=== PATIENT | female | born 1980 | race American Indian/Alaskan Native ===

== ENCOUNTER 2019-04-05 10:28 | Outpatient (CLI) | payer OTHER ==
[2019-04-05 10:53] LABS: Hematocrit 25.3 % (30.3-42.9); Hemoglobin 7.6 gm/dl (10.1-14.3)
[2019-04-05] MEDS ORDERED: ALBUTEROL 2.5 MG/3 ML NEBU IH ONE (11:27)
== END 2019-04-05 10:29 | disposition home or self-care (01) ==
LOC: PF 10:28
PROVIDERS: ATTEND Internal Medicine
DX: M19.90 Unspecified osteoarthritis, unspecified site (principal); E11.9 Type 2 diabetes mellitus without complications; J45.909 Unspecified asthma, uncomplicated
CPT/HCPCS: 36415; 85014; 85018; 94060; 94640

== ENCOUNTER 2019-09-12 09:17 | Emergency (ER) | payer BC, OTHER ==
[2019-09-12] MEDS ORDERED: ASPIRIN 325 MG TAB PO ONE (09:45)
[2019-09-12 10:29] LABS: Basophils % (Auto) 0.7 % (0.0-1.8); Eosinophils % (Auto) 0.5 % (0.0-4.3); Hematocrit 24.6 % (30.3-42.9); Hemoglobin 7.2 gm/dl (10.1-14.3); Lymphocytes # (Auto) 2.8 K/mm3 (1.2-5.4); Lymphocytes % (Auto) 41.3 % (13.4-35.0); Mean Corpuscular HGB Conc 29 % (30-34); Monocytes # (Auto) 0.6 K/mm3 (0.0-0.8); Monocytes % (Auto) 8.9 % (0.0-7.3); Platelet Count 552 K/mm3 (140-440); Red Blood Count 4.19 M/mm3 (3.65-5.03); Red Cell Distribution Width 19.3 % (13.2-15.2)
--- NOTE | 2019-09-12 10:40 | XRay Report ---
CHEST 1 VIEW INDICATION: Chest Pain. COMPARISON: None. FINDINGS: Support devices: None. Heart: Within normal limits. Lungs/Pleura: No acute air space or interstitial disease. Additional findings: None. IMPRESSION: No acute abnormality. Signer Name: Prashant Herrera MD Signed: 09/12/2019 10:36 AM Workstation Name: [id number]
[2019-09-12 10:47] LABS: BUN/Creatinine Ratio 14; Blood Urea Nitrogen 10 mg/dL (7-17); Calcium 8.8 mg/dL (8.4-10.2); Hemolysis Index 7
[2019-09-12 10:49] LABS: Mean Corpuscular Volume 59 fl (79-97)
[2019-09-12 11:20] VITALS: BP 148/87
--- NOTE | 2019-09-12 11:31 | Emergency Department Report ---
ED General Adult HPI - General Chief complaint: Chest Pain Stated complaint: CHEST PAIN, STOMACH PAIN Time Seen by Provider: 09/12/19 11:19 Source: patient Mode of arrival: Ambulatory Limitations: No Limitations - History of Present Illness Initial comments: 38-year-old -[place] female presents to the emergency room complaining of chest pain that is intermittent been going on for the last year but the last 2 months it seems of gotten worse. Patient states that his difficulty for sleeping. It is worse when she working or cleaning or moving. He gets better with rest. Patient reports that the pain is 8 out of 10 it feels like pressure but does not feel like her usual heartburn. Patient admits to shortness of breath with minimal movement. Patient admits to nausea but no vomiting. Patient was seen in [facility] in May and had to have a blood transfusion. Patient has a past medical history of anemia and asthma. Patient currently takes no medications. Patient does have a primary care provider but has not followed up. Patient does admit to heavy menses with her last menstrual period 09/09/2019. It usually lasts about 5 days in is to see the first week of the month. Patient denies any rectal bleeding denies any hematuria hematochezia. Patient denies any hemorrhoids. Onset/Timin -: month(s) Location: chest Radiation: non-radiation Quality: other (Heaviness) Consistency: intermittent Improves with: rest Worsens with: eating, movement Associated Symptoms: chest pain, nausea/vomiting (No vomiting), shortness of breath. denies: cough, headaches, loss of appetite Treatments Prior to Arrival: none - Related Data Previous Rx's Medication Instructions Recorded Last Taken Type Ciprofloxacin HCl [Ciprofloxacin 500 mg PO Q12HR #14 tab 03/28/15 Unknown Rx TAB] HYDROcodone/APAP 10-325 [Conrath 1 each PO Q6HR PRN #20 tablet 03/28/15 Unknown Rx 10-325 mg TAB] Acetaminophen/Codeine [Tylenol #3] 1 tab PO Q6H PRN #20 tab 09/20/15 Unknown Rx Ibuprofen [Motrin] 600 mg PO Q8H PRN #40 tablet 09/20/15 Unknown Rx Sulfamethoxazole/Trimethoprim 1 each PO BID #20 tablet 09/20/15 Unknown Rx [Bactrim DS TAB] Docusate Sodium [Colace] 100 mg PO BID PRN #20 capsule 09/12/19 Unknown Rx Ferrous Sulfate [Ferrous Sulfate 324 mg PO TID #90 tablet. 09/12/19 Unknown Rx 324 MG] Allergies Allergy/AdvReac Type Severity Reaction Status Date / Time Penicillins Allergy Seizure Verified 03/28/15 08:23 ED Review of Systems ROS: Stated complaint: CHEST PAIN, STOMACH PAIN Other details as noted in HPI Comment: All other systems reviewed and negative ED Past Medical Hx - Past Medical History Previous Medical History?: Yes Hx Diabetes: Yes (Diet Controlled, no meds) Hx Asthma: Yes Additional medical history: Obesity - Surgical History Past Surgical History?: Yes Additional Surgical History: - Social History Smoking Status: Never Smoker Substance Use Type: None - Medications Home Medications: Home Medications Medication Instructions Recorded Confirmed Last Taken Type Ciprofloxacin HCl [Ciprofloxacin 500 mg PO Q12HR #14 tab 03/28/15 Unknown Rx TAB] HYDROcodone/APAP 10-325 [Conrath 1 each PO Q6HR PRN #20 tablet 03/28/15 Unknown Rx 10-325 mg TAB] Acetaminophen/Codeine [Tylenol #3] 1 tab PO Q6H PRN #20 tab 09/20/15 Unknown Rx Ibuprofen [Motrin] 600 mg PO Q8H PRN #40 tablet 09/20/15 Unknown Rx Sulfamethoxazole/Trimethoprim 1 each PO BID #20 tablet 09/20/15 Unknown Rx [Bactrim DS TAB] Docusate Sodium [Colace] 100 mg PO BID PRN #20 capsule 09/12/19 Unknown Rx Ferrous Sulfate [Ferrous Sulfate 324 mg PO TID #90 tablet. 09/12/19 Unknown Rx 324 MG] ED Physical Exam - General Limitations: No Limitations General appearance: alert, in no apparent distress - Head Head exam: Present: atraumatic, normocephalic - Eye Eye exam: Present: normal appearance - ENT ENT exam: Present: mucous membranes moist - Neck Neck exam: Present: normal inspection - Respiratory Respiratory exam: Present: normal lung sounds bilaterally. Absent: respiratory distress - Cardiovascular Cardiovascular Exam: Present: regular rate, normal rhythm. Absent: systolic murmur, diastolic murmur, rubs, gallop - GI/Abdominal GI/Abdominal exam: Present: soft, normal bowel sounds - Extremities Exam Extremities exam: Present: normal inspection - Back Exam Back exam: Present: normal inspection - Neurological Exam Neurological exam: Present: alert, oriented X3 - Psychiatric Psychiatric exam: Present: normal affect, normal mood - Skin Skin exam: Present: warm, dry, intact, normal color. Absent: rash ED Course Vital Signs 09/12/19 09:46 Temperature 98.0 F Pulse Rate 68 Respiratory 18 Rate Blood Pressure 148/87 O2 Sat by Pulse 100 Oximetry ED Medical Decision Making - Lab Data Result diagrams: 09/12/19 09:52 09/12/19 09:52 - Radiology Data Radiology results: report reviewed Patient: PAULINA BAZZI MR#: [id number] : 1980 Acct:[id number] Age/Sex: 38 / F ADM Date: 09/12/19 Loc: ED Attending Dr: Ordering Physician: MONICA BERNABE MD Date of Service: 09/12/19 Procedure(s): XR chest 1V ap Accession Number(s): [id number] cc: MONICA BERNABE MD Fluoro Time In Minutes: CHEST 1 VIEW INDICATION: Chest Pain. COMPARISON: None. FINDINGS: Support devices: None. Heart: Within normal limits. Lungs/Pleura: No acute air space or interstitial disease. Additional findings: None. IMPRESSION: No acute abnormality. Signer Name: Prashant Herrera MD Signed: 09/12/2019 10:36 AM Workstation Name: [id number] Transcribed By: ES Dictated By: Prashant Herrera MD Electronically Authenticated By: Prashant Herrera MD Signed Date/Time: 09/12/19 1036 DD/ 1035 TD/TT: - Medical Decision Making 38-year-old -[place] female presents to the emergency room complaining of chest pain that is intermittent been going on for the last year but the last 2 months it seems of gotten worse. Patient states that his difficulty for sleeping. It is worse when she working or cleaning or moving. He gets better with rest. Patient reports that the pain is 8 out of 10 it feels like pressure but does not feel like her usual heartburn. Patient admits to shortness of breath with minimal movement. Patient admits to nausea but no vomiting. Patient was seen in [facility] in May and had to have a blood tr ansfusion. Patient has a past medical history of anemia and asthma. Patient currently takes no medications. Patient does have a primary care provider but has not followed up. Patient does admit to heavy menses with her last menstrual period 09/09/2019. It usually lasts about 5 days in is to see the first week of the month. Patient denies any rectal bleeding denies any hematuria hematochezia. Patient denies any hemorrhoids. CBC CMP troponin. CBC shows a hemoglobin of 7.2 elevated platelets. Discussed the patient that she needs to be on iron recommend 325 mg 3 times daily for the first week with Colace and then daily and to follow-up with a education professor and her primary care provider. Critical care attestation.: If time is entered above; I have spent that time in minutes in the direct care of this critically ill patient, excluding procedure time. ED Disposition Clinical Impression: Anemia, Severely overweight, Chest pain at rest Disposition: PAT REG,NO TRIAGE Does the pt Need Aspirin: No Condition: Stable Instructions: Chest Pain (ED) Additional Instructions: Take iron 3 times a day for the next week and then daily. Take Colace twice a day as needed for constipation. Follow-up with [facility] and your primary care provider. I have also listed a education professor to have your anemia evaluated. Prescriptions: Docusate Sodium [Colace] 100 mg PO BID PRN #20 capsule PRN Reason: Constipation Ferrous Sulfate [Ferrous Sulfate 324 MG] 324 mg PO TID #90 tablet. Referrals: PRIMARY CAREMD [Primary Care Provider] - 3-5 Days MIGUEL ETIENNE MD [Staff Physician] - 3-5 Days EVELYN VICENTE MD [Staff Physician] - 3-5 Days [facility] [Provider Group] - 3-5 Days
== END 2019-09-12 14:30 | disposition left against medical advice (07) ==
LOC: ED 09:17
DX: D64.9 Anemia, unspecified (principal); R07.89 Other chest pain; E66.3 Overweight; Z68.42 Body mass index [BMI] 45.0-49.9, adult; E11.9 Type 2 diabetes mellitus without complications; J45.909 Unspecified asthma, uncomplicated; Z98.890 Other specified postprocedural states; Z79.1 Long term (current) use of non-steroidal anti-inflammatories (NSAID); Z79.899 Other long term (current) drug therapy; Z88.0 Allergy status to penicillin
CPT/HCPCS: 36415; 71045; 80048; 82271; 84484; 85025; 86850; 86900; 86901; 93005; 93010